=== PATIENT | male | born 1955 | race Caucasian/White ===

== ENCOUNTER 2025-02-04 17:12 | Emergency (ER) | payer BC, SELFPAY ==
[2025-02-04 17:16] VITALS: BP 125/74
[2025-02-04 19:00] VITALS: BP 116/86
[2025-02-04 19:08] VITALS: BP 116/86
[2025-02-04 19:14] VITALS: BMI 30.2
--- NOTE | 2025-02-04 19:59 | ED.GENMED ---
History of Present Illness
<Drea Barron PA-C - Last Filed: 02/04/25 23:14>
General
Chief Complaint: Bowel Problem
Source: patient
Exam Limitations: none
Time Seen by Provider: 02/04/25 19:39
History of Present Illness
History of Present Illness:
69yoM with a history of ALS presenting with his for evaluation of constipation. He has not been able to have a bowel movement in the past 48 hours. He is symptomatic with pain throughout his lower abdomen. He took a dose of MiraLAX today
without any improvement. He denies any difficulty urinating, vomiting, rectal pain, rectal bleeding, fevers. Only prior abdominal surgery was a cholecystectomy. Of note, patient had a muscle biopsy on the right thigh yesterday and did receive IV
sedation for this procedure.
Phy Exam
<Drea Barron PA-C - Last Filed: 02/04/25 23:14>
General Physical Exam
General Presentation: well appearing and no apparent distress
General Skin: warm and dry
General Habitus: normal
General Mental: alert
ENT Exam
ENT Exam: normocephalic
Gastrointestinal Exam
Gastrointestinal Exam: soft, non distended and other (+Tenderness in lower abdomen. Abdomen soft, non-distended. No rebound or guarding.)
Neurological Exam
Neurological Exam: alert
[place] Coma Scale
Eye Opening: Spontaneous
Verbal Response: Oriented
Motor Response: Obeys Commands
GCS Total Score: 15
Skin Exam
Skin Exam: normal color and warm/dry
Psychiatric Exam
Psychiatric Exam: normal mood/affect
<Dada Ferguson DO - Last Filed: 02/04/25 23:22>
[place] Coma Scale
GCS Total Score: 15
Course
<Drea Barron PA-C - Last Filed: 02/04/25 23:14>
Orders/Labs/Results
Orders:
Orders
02/04/25 19:58
CT Abd/pelvis W Iv Cont Urgent
Comment:
Reason For Exam: lower abd pain, constipation
02/04/25 20:09
Complete Blood Count/With Diff Urgent
Comprehensive Metabolic Panel Urgent
02/04/25 21:31
Enema- Treatment ONCE
Type: Milk of Molasses
Ketorolac [Toradol] 15 mg IV NOW STA
Abnormal Lab Results
02/04/25
20:09
RBC 4.49 L 10^6/uL
(4.70-6.10)
MPV 10.7 H fL
(7.4-10.4)
Absolute Monos (auto) 1.0 H 10^3/uL
(0.1-0.6)
Monocytes % 11.5 H %
(1.7-9.3)
Glucose 101 H mg/dl
(70-99)
Total Bilirubin 1.7 H mg/dl
(0.2-1.3)
02/04/25 20:09
02/04/25 20:09
Vital Signs
Initial and Last Documented VS:
Initial Vital Signs
Temp Pulse Resp BP Pulse Ox
98 F 67 16 125/74 96
02/04/25 17:16 02/04/25 17:16 02/04/25 17:16 02/04/25 17:16 02/04/25 17:16
Last Documented Vital Signs
Temp Pulse Resp BP Pulse Ox
98 F 67 18 131/83 95
02/04/25 17:16 02/04/25 21:28 02/04/25 19:00 02/04/25 21:28 02/04/25 21:28
<Dada Ferguson DO - Last Filed: 02/04/25 23:22>
Orders/Labs/Results
Orders:
Orders
02/04/25 19:58
CT Abd/pelvis W Iv Cont Urgent
Comment:
Reason For Exam: lower abd pain, constipation
02/04/25 20:09
Complete Blood Count/With Diff Urgent
Comprehensive Metabolic Panel Urgent
02/04/25 21:31
Enema- Treatment ONCE
Type: Milk of Molasses
Ketorolac [Toradol] 15 mg IV NOW STA
Abnormal Lab Results
02/04/25
20:09
RBC 4.49 L 10^6/uL
(4.70-6.10)
MPV 10.7 H fL
(7.4-10.4)
Absolute Monos (auto) 1.0 H 10^3/uL
(0.1-0.6)
Monocytes % 11.5 H %
(1.7-9.3)
Glucose 101 H mg/dl
(70-99)
Total Bilirubin 1.7 H mg/dl
(0.2-1.3)
02/04/25 20:09
02/04/25 20:09
Vital Signs
Initial and Last Documented VS:
Initial Vital Signs
Temp Pulse Resp BP Pulse Ox
98 F 67 16 125/74 96
02/04/25 17:16 02/04/25 17:16 02/04/25 17:16 02/04/25 17:16 02/04/25 17:16
Last Documented Vital Signs
Temp Pulse Resp BP Pulse Ox
98 F 67 18 131/83 95
02/04/25 17:16 02/04/25 21:28 02/04/25 19:00 02/04/25 21:28 02/04/25 21:28
<Drea Barron PA-C - Last Filed: 02/04/25 23:14>
MDM/Problems Addressed
Differential Diagnosis Includes:
69yoM here with constipation. No BM x 2 days. C/o lower abd pain. No vomiting or difficulty urinating. VSS. He is well-appearing in no acute distress. No signs of peritonitis on abdominal exam. Differential diagnosis includes but is not limited
to: Constipation, fecal impaction, diverticulitis, SBO
Initial ED plan: Check CBC, CMP, and CT abdomen.
<Drea Barron PA-C - Last Filed: 02/04/25 23:14>
*Pulse Oximetry
SaO2: 96
Oxygen Mode of Delivery: Room air
Patient hypoxic: no (96%)
*Critical Care Note
Total Time (30-74mins, 75-104mins- exclusive of procedures): Not Applicable
<Drea Barron PA-C - Last Filed: 02/04/25 23:14>
Update Note
Update Note:
Labs unremarkable. CT shows large volume stool. 'Stercoral colitis unlikely but cannot be entirely excluded.' No evidence of obstruction present. Patient given milk of molasses enema and was able to have a small bowel movement. Digital
disimpaction attempted although stool is above fingertip. Second enema given followed by another bowel movement. Patient is feeling significantly improved and states his abdominal pain/pressure has resolved. He is stable for discharge.
Supportive care discussed including MiraLAX and magnesium citrate if no improvement.
ED Attending Note
<Drea Barron PA-C - Last Filed: 02/04/25 23:14>
-
Portions of this chart may have been created with voice recognition software.� Occasional wrong word or��sound alike� substitutions may have occurred due to the inherent limitations of voice recognition software.
<Dada Ferguson DO - Last Filed: 02/04/25 23:22>
ED Attending Note
Patient seen and examined by attending physician: Yes
I performed the substantive portion of visit, reviewed & personally made and approve the management plan that is documented in note by myself or MAGALY.: Yes
ED Attending Note:
I agree with fidencio's note
Pt presents with severe constipation, rectal pain. Feel like abd is distended
Pt awake, oriented. No distress. Feeling better
ABd: soft, non-tender.
CT: shows large stool burden but no acute inflammatory process.
Pt treated with enemas. + significant improvement.
Discharge Plan
Departure
Patient Disposition: Home (Routine Discharge)
Date of Disposition: 02/04/25
Time of Disposition: 23:09
Patient with high blood pressure during this ER visit?: No
Discharge Problem:
Constipation
Instructions: Constipation, Adult (DC)
Prescriptions:
No Action
fluticasone propionate [Flonase Allergy Relief] 50 mcg/actuation [place],Suspension
50 mcg INTRANASAL DAILY
omeprazole [Prilosec] 10 mg Capsule,Delayed Release(Dr/Ec)
10 mg PO PRN PRN (Reason: acid reflux flare ups)
riluzole 50 mg Tablet
50 mg PO BID
Referrals:
Lacho Cristina DO [Family Provider, Family Practice]
Activity Restrictions/Additional Instructions:
Take MiraLAX 1-2 times daily until bowel movements regulate. Increase your fluid and fiber intake. He may also take magnesium citrate if symptoms do not improve.
Please follow-up with your family doctor. Return to the ER with any new or worsening symptoms.
Interventions
Interventions:
*Risk Screen - Suicide Last Done: 02/04/25 17:18
*General Assessment Last Done: 02/04/25 19:16
*Neglect/Abuse Screening Last Done: 02/04/25 17:18
*ED- Fall Risk Assessment Last Done: 02/04/25 19:16
*ED COVID-19 Vaccine History Last Done: 02/04/25 19:16
[facility]My[facility] Assessment Last Done: 02/04/25 20:23
Discharge Date and Time
Print Language: SLOVENIAN
[2025-02-04 20:00] VITALS: BP 116/103
[2025-02-04 20:25] LABS: Hematocrit 39.6 % (39.0-52.0); Hemoglobin 13.2 g/dL (13.0-18.0); Mean Corp Hgb Conc. 33.3 g/dL (33.0-37.0); Mean Corpuscular Volume 88.2 fL (80.0-94.0); Nucleated Red Blood Cells % 0 % (-); Platelet Count 217 10^3/uL (130-400); Red Cell Dist. Width 13.8 % (11.5-14.5)
[2025-02-04 20:42] LABS: ALT (SGPT) 35 U/L (0-50); AST (SGOT) 40 U/L (17-59); Albumin 4.3 g/dl (3.5-5.0); Alkaline Phosphatase 60 U/L (38-126); Blood Urea Nitrogen 11 mg/dl (9-20); Calcium 9.2 mg/dl (8.4-10.2); Carbon Dioxide 25 mmol/L (22-30); Chloride 106 mmol/L (98-107); Estimated Creatinine Clearance 101 ml/min; Glucose 101 mg/dl (70-99); Potassium 4.3 mmol/L (3.5-5.1); Sodium 135 mmol/L (135-145); Total Protein 7.0 g/dl (6.3-8.2); eGFR > 60.00
[2025-02-04 21:28] VITALS: BP 131/83
[2025-02-04] MEDS: TORADOL 15 MG IV (21:35)
[2025-02-04 23:20] VITALS: BP 111/63
== END 2025-02-04 23:34 | disposition home or self-care (01) ==
LOC: EMR 17:12
PROVIDERS: Physician Assistant; EMERGENCY PHYSICIAN Emergency Medicine; FAMILY PHYSICIAN Family Medicine
DX: K59.00 Constipation, unspecified (principal); R10.30 Lower abdominal pain, unspecified; Z90.49 Acquired absence of other specified parts of digestive tract
CPT/HCPCS: 96374; 99284; 74177; 80053; 85025; Q9967

== ENCOUNTER → 2025-04-02 09:36 | Outpatient (REF) | payer BC, SELFPAY ==
[2025-04-02 10:07] VITALS: BP 125/82; BP_SYST 66
== END ==
LOC: RADI 09:36
PROVIDERS: ATTENDING PHYSICIAN Internal Medicine Hematology & Oncology; FAMILY PHYSICIAN Physician Assistant
DX: D47.2 Monoclonal gammopathy (principal); E85.9 Amyloidosis, unspecified; G12.21 Amyotrophic lateral sclerosis
CPT/HCPCS: 49180; 76942; 88305; 88313